=== PATIENT | female | born 1975 | race Caucasian/White ===

== ENCOUNTER 2024-12-30 11:18 | Emergency (ER) | payer OTHER ==
[~2024-12-30] VITALS: Ht 160 cm; Wt 9.1 kg
[2024-12-30] MEDS ORDERED: KETOROLAC TROMETHAMINE 30 MG VIAL IV ONE (12:30)
[2024-12-30] MEDS ORDERED: ONDANSETRON HCL 2 MG/ML VIAL IV ONE (12:30)
[2024-12-30] MEDS ORDERED: FAMOtidine 10 MG/ML (4ML VIAL) IV ONE (12:30)
[2024-12-30] MEDS ORDERED: CEFTRIAXONE SODIUM 1,000 MG VIAL IV ONE (12:30)
[2024-12-30] MEDS ORDERED: 0.9 % SODIUM CHLORIDE 1,000 ML IV ONE (12:30)
[2024-12-30] MEDS ORDERED: TAMSULOSIN HCL 0.4 MG CAP PO ONE ×2 (12:30→12:31)
[2024-12-30] MEDS ORDERED: KETOROLAC TROMETHAMINE 30 MG VIAL ONE (12:31)
[2024-12-30] MEDS ORDERED: CEFTRIAXONE SODIUM 1,000 MG VIAL ONE (12:32)
[2024-12-30] MEDS ORDERED: FAMOTIDINE/PF 20 MG/2 ML VIAL ONE (12:32)
[2024-12-30] MEDS ORDERED: ONDANSETRON HCL 2 MG/ML VIAL ONE (12:32)
[2024-12-30 13:10] LABS: BASO % 0.4 % (0.1-1.2); EOS # 0.02 (0.04-0.54); EOS % 0.1 % (0.7-7.0); LYMPH # 1.63 (1.18-3.74); LYMPH % 11.4 % (19.3-53.1); MEAN PLATELET VOLUME 10.00 fl (9.4-12.4); MONO # 0.68 (0.24-0.82); MONO % 4.8 % (4.7-12.5); NEUT # 11.85 (1.56-6.13); NEUT % 83.0 % (34.0-71.1); RED CELL DISTRIBUTION WIDTH 15.0 % (11.6-14.4)
[2024-12-30 13:30] LABS: INR 1.01
[2024-12-30 13:39] LABS: ALT/SGPT 22.0 U/L (12-78); AST/SGOT 17.0 U/L (15-37); BILIRUBIN TOTAL 0.43 mg/dL (0.3-1.2); BUN CREA RATIO 19.0 (7.0-25.0); CREATININE SERUM 0.74 mg/dL (0.55-1.02); GFR 82.74; GLOBULINA 4.4 G/DL (2.4-3.5); GLUCOSE FASTING 104.0 mg/dL (65-100); OSMOLALITY SERUM 282.0 MOSM/KG (275-295)
[2024-12-30] MEDS ORDERED: TAMS0.4C PO (14:30)
[2024-12-30] MEDS ORDERED: NORFLEX100MG PO (14:30)
[2024-12-30] MEDS ORDERED: BACTRIM DS TAB1 EACH PO (14:30)
[2024-12-30] MEDS ORDERED: PEPCID AC20 MG PO (14:30)
== END 2024-12-30 15:24 | disposition home or self-care (01) ==
LOC: ER 11:19
PROVIDERS: General Practice
DX: R10.A1 Flank pain, right side (principal)